=== PATIENT | male | born 1980 | race Caucasian/White ===

== ENCOUNTER 2017-12-28 18:29 | Emergency (ER) | payer SELFPAY ==
[~2017-12-28] VITALS: Ht 167.6 cm; Wt 63.5 kg
[2017-12-28 18:30] VITALS: BP 139/84
== END 2017-12-28 19:27 | disposition left against medical advice (07) ==
LOC: ED 19:21
DX: Z53.21 Procedure and treatment not carried out due to patient leaving prior to being seen by health care provider (principal)